=== PATIENT | male | born 1950 | race American Indian/Alaskan Native ===

== ENCOUNTER 2016-07-12 16:32 | Emergency (ER) | payer MEDICARE ==
[2016-07-12 16:32] VITALS: BMI 24.1
[2016-07-12 16:53] VITALS: BP 164/68; PULSE 66; RESP 16; TEMP 98.2
[2016-07-12] MEDS ORDERED: Morphine 4 mg/ml ISec IM STA (17:26)
--- NOTE | 2016-07-12 17:57 | ED PDOC ---
Arrival/HPI - General Chief Complaint: Lower Extremity Problem/Injury Time Seen by Provider: 07/12/16 16:36 Historian: Patient - History of Present Illness Narrative History of Present Illness (Text): 07/12/16 17:54 66 year old male with a history of right AKA and left BKA presents to the emergency department with chronic right thigh pain radiating to the hip. Denies trauma or fall. Patient is under chronic pain management by PMD. Time/Duration: > week Symptom Onset: Gradual Symptom Course: Unchanged Modifying Factors (Text): None Associated Symptoms (Text): None Past Medical History - Provider Review Nursing Documentation Reviewed: Yes - Infectious Disease Hx of Infectious Diseases: None - Cardiac Hx Congestive Heart Failure: Yes Hx Hypertension: Yes Hx Pacemaker: No Hx Peripheral Edema: Yes (left ankle) - Pulmonary Hx Respiratory Disorders: No - Neurological Hx Neurological Disorder: No - HEENT Hx HEENT Disorder: No Other/Comment: ear wax buildup periodically - Renal Hx Renal Disorder: Yes - Endocrine/Metabolic Hx Diabetes Mellitus Type 1: Yes - Hematological/Oncological Hx Blood Transfusions: Yes - Integumentary Hx Dermatological Disorder: Yes Other/Comment: blood clots was amputated to right leg aka - Musculoskeletal/Rheumatological Hx Falls: No - Gastrointestinal Hx Gastrointestinal Disorders: No - Genitourinary/Gynecological Hx Genitourinary Disorders: No - Psychiatric Hx Psychophysiologic Disorder: No Hx Substance Use: No - Surgical History Hx Amputation: Yes (AKA to right leg, BKA to left leg) Other/Comment: 2014 left leg surgery'bypass' - Anesthesia Hx Anesthesia: Yes Hx Anesthesia Reactions: No Hx Malignant Hyperthermia: No - Suicidal Assessment Feels Threatened In Home Enviroment: No Family/Social History - Physician Review Nursing Documentation Reviewed: Yes Family/Social History: Unknown Family HX Smoking Status: Former Smoker Hx Alcohol Use: Yes Hx Substance Use: No Allergies/Home Meds Allergies/Adverse Reactions: Allergies No Known Allergies Allergy (Verified 07/12/16 16:35) Home Medications: Home Meds Medication Instructions Recorded Confirmed Docusate Sodium 100 mg PO Q8H 01/30/15 06/29/16 Furosemide 40 mg PO DAILY 01/30/15 06/29/16 Metformin Hydrochloride [Metformin] 500 mg PO BID 01/30/15 06/29/16 traMADol [Ultram] 50 mg PO PRN 06/28/16 Review of Systems - Physician Review All systems were reviewed & negative as marked: Yes - Review of Systems Respiratory: absent: SOB Cardiovascular: absent: Chest Pain Musculoskeletal: Other (Right thigh pain) Physical Exam Vital Signs Reviewed: Yes Vital Signs Temp Pulse Resp BP Pulse Ox 07/12/16 17:59 16 98 07/12/16 16:42 98.2 F 66 16 164/68 H 100 Temperature: Afebrile Blood Pressure: Normal Pulse: Regular Respiratory Rate: Normal Appearance: Positive for: Well-Appearing, Non-Toxic, Comfortable Pain Distress: None Mental Status: Positive for: Alert and Oriented X 3 Finger Stick Blood Glucose: 242 - Systems Exam Head: Present: Atraumatic, Normocephalic Pupils: Present: PERRL Extroacular Muscles: Present: EOMI Conjunctiva: Present: Normal Mouth: Present: Moist Mucous Membranes Neck: Present: Normal Range of Motion Respiratory/Chest: Present: Clear to Auscultation, Good Air Exchange. No: Respiratory Distress, Accessory Muscle Use Cardiovascular: Present: Regular Rate and Rhythm, Normal S1, S2. No: Murmurs Abdomen: Present: Normal Bowel Sounds. No: Tenderness, Distention, Peritoneal Signs Back: Present: Normal Inspection Upper Extremity: Present: Normal Inspection. No: Cyanosis, Edema Lower Extremity: Present: Other (Right AKA, left BKA. No abrasions. Skin intact. ). No: Edema Neurological: Present: GCS=15, CN II-XII Intact, Speech Normal Skin: Present: Warm, Dry, Normal Color. No: Rashes Psychiatric: Present: Alert, Oriented x 3, Normal Insight, Normal Concentration Medical Decision Making ED Course and Treatment: Impression: 66 year old male presents with chronic lower extremity pain Plan: -- Discharge with f/u to PMD Prior Visits: Notes and results from previous visits were reviewed. Patient last seen in the ED on Progress Notes: Explained to patient that there is a new law requiring narcotic refills to come from PMD or pain management doctor. Patient understands and will be discharged to follow up with PMD. All questions answered. Patient stable for discharge. - Lab Interpretations Lab Results: Lab Results 07/12/16 16:45: POC Glucose (mg/dL) 242 H - Medication Orders Current Medication Orders: Discontinued Medications Morphine Sulfate (Morphine) 4 mg IM STAT STA Stop: 03/31/17 17:27 Last Admin: 07/12/16 17:37 Dose: 4 MG MAR Pain Assessment Document 07/12/16 17:37 [email or web address] (Rec: 07/12/16 17:38 [email or web address] [id number]) Pain Reassessment Is this a pain reassessment? No Sleep Is patient sleeping during reassessment? No Presence of Pain Presence of Pain Yes Pain Scale Used Pain Scale Used Numeric Location Left, Right or Bilateral Right Pain Location Body Site Leg Description Description Constant Intensity of Pain at present 9 Pain Behavior Facial Grimacing Aggravating Factors Changing Position Alleviating Factors/Management Medication Techniques Alleviating Factors Medication IM Administration Charges Document 07/12/16 17:37 [email or web address] (Rec: 07/12/16 17:38 [email or web address] [id number] [id number]) Injection Site MAR Injection Site Right Deltoid Charges for Administration # of IM Administrations 1 - Scribe Statement The provider has reviewed the documentation as recorded by the Olesya Rojo Provider Scribe Attestation: All medical record entries made by the Barbaraiblea were at my direction and personally dictated by me. I have reviewed the chart and agree that the record accurately reflects my personal performance of the history, physical exam, medical decision making, and the department course for this patient. I have also personally directed, reviewed, and agree with the discharge instructions and disposition. Disposition/Present on Arrival - Present on Arrival Any Indicators Present on Arrival: No History of DVT/PE: No History of Uncontrolled Diabetes: No Urinary Catheter: No History of Decub. Ulcer: No History Surgical Site Infection Following: None - Disposition Have Diagnosis and Disposition been Completed?: Yes Diagnosis: Chronic pain of lower extremity Disposition: HOME/ ROUTINE Disposition Time: 17:50 Condition: GOOD Discharge Instructions (ExitCare): Chronic Pain (ED) Additional Instructions: Thank you for letting us take care of you today. Your provider was Dr. Schaeffer. You were treated for chronic leg pain. The emergency medical care you received today was directed at your acute symptoms. If you were prescribed any medication, please fill it and take as directed. It may take several days for your symptoms to resolve. Return to the Emergency Department if your symptoms worsen, do not improve, or if you have any other problems. Please contact your doctor or call one of the physicians/clinics you have been referred to that are listed on the Patient Visit Information form that is included in your discharge packet. Bring any paperwork you were given at discharge with you along with any medications you are taking to your follow up visit. Our treatment cannot replace ongoing medical care by a primary care provider (PCP) outside of the emergency department. Thank you for allowing the [facility] team to be part of your care today. Follow up with your primary doctor or pain management doctor for refills on your pain medication. Referrals: Samir Lewis MD [Primary Care Provider] - Follow up with primary
[2016-07-12 18:00] VITALS: O2SAT 98
--- NOTE | 2016-07-13 08:26 | CARD ---
APPROVED REPORT EKG Measurement Heart [id number] <Conclusion> Normal sinus rhythm Left ventricular hypertrophy with repolarization abnormality Abnormal ECG
== END 2016-07-12 17:59 | disposition home or self-care (01) ==
LOC: ED 16:32
DX: M79.651 Pain in right thigh (principal); G89.29 Other chronic pain; Z89.512 Acquired absence of left leg below knee; Z89.611 Acquired absence of right leg above knee; I10 Essential (primary) hypertension; Z79.4 Long term (current) use of insulin; Z87.891 Personal history of nicotine dependence
CPT/HCPCS: 82948; 93005; 96372; 99283; J2270